=== PATIENT | female | born 1975 | race Caucasian/White ===

== ENCOUNTER 2024-02-13 09:09 | Outpatient (OUT) | payer MEDICARE, MEDICAID, SELFPAY ==
--- NOTE | 2024-02-13 07:51 | VEINCLINIC_ITS ---
Vital Signs 02/13/24 09:20 Height 5 ft 3 in Weight 92.533 kg BMI 36.1 BP 134/75 BP Location Right Brachial BP Position Sitting BP Cuff Size Adult BP Source Automatic Cuff Respiration 16 Pulse 60 Pulse Source Monitor Pulse Oximetry (%) 96 Oxygen Delivery Method Room Air Comment The patient's blood pressure is elevated. Varicose Veins Patient is a 48 year old female in this day as a referral from her PCP Dr. Octavio sanchez to varicose vein disease, bulging veins in bilateral legs, achiness, and discomfort. Patient c/o bilateral leg pain, numbness, tingling x2 years. Symptoms worse in left leg versus right leg. Patient also c/o hypersensitivity to legs/feet upon touch. Patient has worn bilateral leg knee high compression stockings with some relief. Patient has a history of superficial thrombophlebitis to right leg post surgery. Patient has family history of varicose veins including maternal aunt. 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 IGrayson MD personally performed the services described in this documentation, as scribed by Conor Reynolds RN in my presence and it is both accurate and complete. IConor RN, am scribing for, and in the presence of, Dr. Grayson Moreno and in the presence of the patient. . thigh: bilateral (symptoms left > right leg), knee: bilateral, calf: bilateral, ankle: bilateral and cárdenas: bilateral burning, cramping, dull, sharp and tender 5 2 years Worsened in recent months: Yes sitting and other (laying down at night most noted) elevating extremities, compression stockings and exercise Reports muscle spasms of leg, fatigue, heaviness, limb pain, edema and leg edema History of lower extremity trauma: No Superficial thrombophlebitis: Yes (post-operative) Family history of varicose veins: yes Has patient had previous lower extremity venous surgery: No Patient has previously received the following treatment(s) for lower extremity varicose veins: Reports none Does patient have a history of : no Does patient intend to have future pregnancies: no Has patient had lower extremity venous scan with relux testing: No Support hose used: Yes Problems walking or doing physical activity: Yes How does it affect you: fatigue, pain Do you stand much: Yes Review of Systems ROS Status of ROS 10 or more systems reviewed and unremark able except as noted in history and below Cardiovascular Reports: edema Integumentary/Breast Reports: skin pain, skin tenderness and skin swelling Neurological Reports: numbness in extremities and weakness in extremities [facility] Medical History (Updated 02/13/24 @ 09:33 by Conor Reynolds) Carpal tunnel syndrome on both sides ?G56.03 - Carpal tunnel syndrome, bilateral upper limbs (ICD-10) Varicose veins of bilateral lower extremities with pain ?I83.813 - Varicose veins of bilateral lower extremities with pain (ICD-10) Thyroid cancer ?C73 - Malignant neoplasm of thyroid gland (ICD-10) Bilateral leg edema ?R60.0 - Localized edema (ICD-10) Degenerative disc disease Microalbuminuria ?R80.9 - Proteinuria, unspecified (ICD-10) Vitamin D deficiency ?E55.9 - Vitamin D deficiency, unspecified (ICD-10) Hypothyroid ?E03.9 - Hypothyroidism, unspecified (ICD-10) Diabetic polyneuropathy associated with diabetes mellitus due to underlying condition ?E08.42 - Diabetes mellitus due to underlying condition with diabetic polyneuropathy (ICD-10) Lumbar spondylolysis ?M43.06 - Spondylolysis, lumbar region (ICD-10) Hypertension ?I10 - Essential (primary) hypertension (ICD-10) Type 2 diabetes mellitus ?E11.9 - Type 2 diabetes mellitus without complications (ICD-10) Surgical History (Updated 02/13/24 @ 09:33 by Conor Reynolds) History of tonsillectomy ?Z90.89 - Acquired absence of other organs (ICD-10) H/O gastric sleeve ?Z90.3 - Acquired absence of stomach [part of] (ICD-10) Family History (Updated 02/13/24 @ 09:34 by Conor Reynolds) Other Family history of cancer Family history of hypertension Family history of myocardial infarction Heart disease Varicose veins of bilateral lower extremities with pain Social History (Updated 02/13/24 @ 09:35 by Conor Reynolds) Within the past year, how often did you have a drink containing alcohol: monthly or less Smoking status: Former smoker Non-prescribed substance use: denies use Meds Home Medications and Allergies Home Medications ?Medication ?Instructions ?Recorded ?Confirmed ?Type albuterol 90 mcg/actuation aerosol mcg inhalation 02/13/24 History inhaler atorvastatin 40 mg tablet 40 mg PO DAILY 02/13/24 02/13/24 History gabapentin 300 mg capsule 300 mg PO TID 02/13/24 02/13/24 History levothyroxine 137 mcg tablet 137 mcg PO DAILY 02/13/24 02/13/24 History (Euthyrox) lisinopril 40 mg tablet 40 mg PO DAILY 02/13/24 02/13/24 History metoprolol succinate 50 mg 50 mg PO DAILY 02/13/24 02/13/24 History tablet,extended release 24 hr oxycodone-acetaminophen 5 mg-325 1 tab PO DAILY 02/13/24 02/13/24 History mg tablet semaglutide 0.25 mg or 0.5 mg (2 0.25 mg subcut QWEEK 02/13/24 02/13/24 History mg/1.5 mL) subcutaneous pen injector (Ozempic) Allergies Allergy/AdvReac Type Severity Reaction Status Date / Time No Known Drug Allergies Allergy Verified 02/13/24 08:06 Exam Narrative Exam Narrative: Grayson Shrestha MD personally performed the services described in this documentation, as scribed by Conor Reynolds RN in my presence and it is both accurate and complete. Conor Shrestha RN, am scribing for, and in the presence of, Dr. Grayson Moreno and in the presence of the patient. Constitutional Documenting provider has reviewed patient's vital signs: yes Common normals: oriented x3 Nutritional appearance: overweight Cardio Peripheral pulses: posterior tibial pulses present and dorsalis pedis pulses present Extremity Common normals: normal capillary refill General: edema Right lower extremity: lower leg Right lower leg: inspection and palpation Left lower extremity: lower leg Left lower leg: inspection and palpation Neuro Common normals: oriented x3 Results Additional Findings Additional findings: Bilateral leg reflux u/s reveals abnormally dilated bilateral leg great saphenous veins with associated dilatation along with bilateral leg branch saphenous truncal tributary varicosities. Grayson Shrestha MD personally performed the services described in this documentation, as scribed by Conor Reynolds RN in my presence and it is both accurate and complete. Conor Shrestha RN, am scribing for, and in the presence of, Dr. Grayson Moreno and in the presence of the patient. Assessment and Plan Assessment and Plan (1) Varicose veins of bilateral lower extremities with pain: Plan Patient to continue use of bilateral leg knee high compression stockings, rest, elevation bilateral legs/feet. Patient to return for EVLT of right GSV followed by left GSV followed by microfoam chemical ablation bilateral leg branch saphenous tributary varicosities. Grayson Shrestha MD personally performed the services described in this documentation, as scribed by Conor Reynolds RN in my presence and it is both accurate and complete. Conor Shrestha RN, am scribing for, and in the presence of, Dr. Grayson Moreno and in the presence of the patient.
--- NOTE | 2024-02-13 08:08 | P.DS_ITS ---
Discharge Plan Discharge Disposition: Home, Self-Care Outpatient Diagnostics: VC Endovenous Ablation 1VeinRT (Routine) Timeframe: 2 Weeks Facility: [facility] - Location: [facility] Ordered By: Grayson Moreno Follow Up Appointments: patient to return for EVLT of right GSV upon insurance approval Plan of Treatment: EVLT of bilateral leg GSV starting with right leg followed by microfoam chemical ablation bilateral leg Print Language: Lithuanian Discharge Date/Time: 02/13/24 11:32
--- NOTE | 2024-02-13 09:13 | VEIN_ITS ---
Patient Name: DONOVAN AVINA MR#: [id number] : 1975 Exam Date: 02/13/2024 Ordering Doctor: DR VAN MIN M.D. RADIOLOGY REPORT PROCEDURE: VC EXT VENOUS REFLUX NERY LMTD COMPARISON: None. INDICATIONS: I83.813 Bilateral painful varicose veins TECHNIQUE: Duplex imaging of the lower extremity to assess the deep and superficial venous system for the presence of deep or superficial venous incompetence and to document the location and severity of disease. The study includes evaluation of the great saphenous vein (GSV), anterior accessory saphenous vein (AASV) and small saphenous vein (SSV). Patient scanned in reverse Trendelenburg and standing. FINDINGS: RIGHT LOWER EXTREMITY: Saphenofemoral Junction Reflux: Yes 9.8mm 0.9 sec GSV: Diam (mm) Reflux/ Time (sec) Proximal Thigh 10.1 Yes 4.1 Mid Thigh 7.6 Yes 4.4 Distal Thigh 5.2 Yes 0.5 Prox Calf 6.4 Yes 4.1 Mid Calf 4.0 Yes 0.3 Saphenopopliteal Junction Reflux: 6.6mm Yes 4.7 SSV: Proximal Calf 6.0 Yes 3.5 Mid Calf 5.0 Yes 0.4 AASV: Proximal Thigh 6.0 Yes 1.0 Mid Thigh 5.7 Yes 3.3 Distal Thigh Thrombi: No acute or chronic thrombus. Compressibility: Normal. Flow: Mild deep venous reflux. Preforator: Mid medial lower leg 7.7 mm with 4.8s reflux. Tech Note: Incompetent varicose vein proximal medial lower leg measures 5.2 mm with 1.6s reflux. Varicose vein mid medial lower leg measures 5.7 mm with 0.8s reflux. Varicose vein distal medial thigh measures 4.9 mm with 1.6s reflux. Varicose vein distal medial thigh measures 4.7 mm with 1.7s reflux. LEFT LOWER EXTREMITY: Saphenofemoral Junction Reflux: Yes 11.3 mm 0.8 sec GSV: Diam (mm) Reflux/Time (sec) Proximal Thigh 7.1 Yes 2.0 Mid Thigh 7.3 Yes 1.8 Distal Thigh 6.1 Yes 4.2 Prox Calf 5.5 Yes 1.8 Mid Calf 3.0 Yes 0.5 Saphenopopliteal Junction Relux: 7.1 mm Yes 2.0 SSV: Proximal Calf 6.2 Yes 1.7 Mid Calf 4.6 Yes 0.9 AASV: Proximal Thigh 3.4 Yes 0.5 Mid Thigh 4.0 Yes 0.4 Distal Thigh Thrombi: No acute or chronic thrombus. Compressibility: Normal. Flow: Moderate deep venous reflux. Auto Tech: No significant perforators. Tech Note: Incompetent varicose vein proximal medial lower leg measures 4.1 mm with 4.1s reflux. Varicose vein distal medial thigh measures 4.8 mm with 1.7s reflux. Varicose vein proximal medial lower leg measures 4.0 mm with 0.7s reflux. Varicose vein mid posterior calf off SSV measures 5.5 mm with 4.6s reflux. CONCLUSION: 1. Abnormally dilated an incompetent bilateral great saphenous and small saphenous veins. Abnormally dilated incompetent right anterior accessory saphenous vein. 2. Abnormally dilated incompetent branch saphenous varicosities bilaterally. Dictated by: Grayson Moreno M.D. on 02/13/2024 at 10:19 Approved by: Grayson Moreno M.D. on 02/13/2024 at 10:42
--- NOTE | 2024-02-13 09:13 | VEIN_ITS ---
Patient Name: DONOVAN AVINA MR#: [id number] : 1975 Exam Date: 02/13/2024 Ordering Doctor: DR VAN MIN M.D. RADIOLOGY REPORT PROCEDURE: [facility] - OFFICE VISIT INITIAL COMPARISON: None. PROGRESS NOTES: [age] year old female who presents with a 2 year history of bilateral leg pain, numbness, tingling, a dilated bulging veins. The patient's left leg symptoms are worse than the right. There has been a progression of symptoms over time. This increases with prolonged leg dependency. The patient describes an improvement with rest and elevation. The patient denies any signs and symptoms to suggest arterial ischemia. The patient describes a family history of varicose veins. The patient has drinking and smoking history of occasional alcohol consumption; remote history of smoking. Patient has a past medical history significant for hypertension, diabetes type 2, thyroid cancer, hypothyroidism. The patient denies a history of deep venous thrombus or pulmonary embolus. See separate history and physical for medication list. No prior treatment for varicose or spider veins. Current use of compression stockings. After review of nurse notes, history and physical exam I discussed at length the pathophysiology of venous hypertension and possible treatments, therapies and strategies available. We discussed at length the importance of elevating the lower extremities above the level of the heart, increased physical activity and compression stocking use. Ultrasound venous reflux study performed today was discussed at length with the patient. The report demonstrates abnormally dilated and incompetent bilateral great saphenous veins, bilateral small saphenous veins, and right anterior accessory saphenous vein. Numerous abnormally dilated incompetent branch saphenous varicosities bilaterally. Large senior integration architect vein with significant reflux within lower left leg.. PHYSICAL EXAM: The right leg demonstrates several varicosities, numerous spider veins, no ulceration, mild edema, no skin discoloration. The left leg demonstrates several varicosities, numerous spider veins, no ulceration, mild edema, no skin discoloration. Both thighs, legs and feet were symmetrically warm to the touch. Good posterior tibial and dorsalis pedis pulses were present bilaterally. VEIN/VC Facility EST Comprehensive IMPRESSION: 1. Bilateral lower extremity venous insufficiency 2. Bilateral lower extremity varicose veins 3. Mild bilateral lower extremity subcutaneous edema 4. No flow significant arterial disease 5. CEAP: C3, AC, AP, MI PLAN: 1. Continued use of compression stockings 2. Elevated legs and increased physical activity symptomatic relief 3. Endovenous laser ablation of right great saphenous, left great saphenous, right small saphenous, left small saphenous, right anterior accessory saphenous veins. 4. Microfoam chemical ablation of bilateral incompetent branch saphenous varicosities. 5. Bilateral sclerotherapy for numerous prominent spider veins and reticular veins. Nurse notes, history and physical were reviewed and confirmed, see attached forms. The nurse was present throughout the physical exam and consultation Dictated by: Grayson Moreno M.D. on 02/13/2024 at 11:47 Approved by: Grayson Moreno M.D. on 02/13/2024 at 11:51
[2024-02-13 09:20] VITALS: BP 134/75; PULSE 60; O2SAT 96; BMI 36.1
== END 2024-02-13 11:32 | disposition home or self-care (01) ==
LOC: VC 09:09
PROVIDERS: PCP Family Medicine; Visit Provider Radiology Diagnostic Radiology
DX: I83.813 Varicose veins of bilateral lower extremities with pain (principal)
CPT/HCPCS: 93970; G0463